=== PATIENT | female | born 1980 | race Caucasian/White ===

== ENCOUNTER → 2018-06-01 | Outpatient (CLI) | payer OTHER ==
[~2018-06-01] MED LIST: LIDOCAINE 1% INJ-PF (10 MG/ML) 30 ML SDV ONE
--- NOTE | 2018-06-01 12:33 | WOMENS IMAGING REPORT ---
EXAM DESCRIPTION: U/S AXILLARY ONLY COMPLETED DATE/TIME: 06/01/2018 11:14 am REASON FOR STUDY: R59.0 LOCALIZED ENLARGED LYMPH NODES R59.0 LOCALIZED ENLARGED LYMPH NODES COMPARISON: Ultrasounds from outside facility dated 04/20/2018 and 03/06/2018. TECHNIQUE: Dynamic and static grayscale images acquired of the localized site of clinical concern an d recorded on PACS. Additional selected color Doppler and spectral images recorded. SITE OF CONCERN: Left axilla. LIMITATIONS: None. FINDINGS: In the area of concern there is a benign-appearing lymph node measuring 7 mm in length. F atty hilum with thin cortex. Surrounding tissue has appearance of subcutaneous fat. A few other lym ph nodes are also identified. No suspicious soft tissue mass and no fluid collection. In the area of the patient's symptoms there is a distended superficial vein. Doppler evaluation demo nstrates markedly sluggish flow within this vein. IMPRESSION: 1. SMALL BENIGN-APPEARING LYMPH NODE IN THE AXILLA. NO SUSPICIOUS SONOGRAPHIC FEATURES. NO EVIDENCE OF SOFT TISSUE MASS. THE FINDING ON THE PRIOR ULTRASOUND REPRESENTS A PROMINENT FAT LOBULE. 2. IN THE AREA OF THE PATIENT'S SYMPTOMS THERE IS A DISTENDED SUPERFICIAL VEIN WITH MARKEDLY SLUGGISH FLOW. RECOMMEND FURTHER EVALUATION WITH VENOUS DOPPLER. TECHNICAL DOCUMENTATION: JOB ID: [id number] [employer]- All Rights Reserved Reading location - IP/workstation name: [email or web address]
== END ==
LOC: WI 09:15 → EDSTATUS 10:00
DX: R59.0 Localized enlarged lymph nodes (principal)
CPT/HCPCS: 76882; J3490